=== PATIENT | female | born 1965 | race Caucasian/White ===

== ENCOUNTER 2017-02-01 21:43 | Inpatient (IN) | payer OTHER ==
[~2017-02-01] VITALS: Ht 152.4 cm; Wt 115.3 kg
[~2017-02-01 21:43] MED LIST: CLOPIDOGREL75 MG PO; COZAAR100 MG PO; Cozaar PO; DORZOLAMIDE-TIM10 ML LEFT EYE; ECOTRIN325 MG PO; Ecotrin PO; GLUCOPHAGE500 MG PO; HUMULIN 70100 UNIT/1 SC; HUMULIN 70100 UNIT/2 SC; LASIX40 MG PO; LEVAQUIN500 MG PO; LEVEMIR FL100 UNIT/1 SC; LEVEMIR FL100 UNITS/ SC; LOPRESSOR50 MG PO; LOW DOSE ASPIRI81 M1 PO; Lasix PO; Levaquin PO; Lopressor PO; METFORMIN HCL1000 MG PO; METOPROLOL SUCC25 MG PO; Micro-K,K-Tab,K-Dur, PO; NEURONTIN600 MG PO; NOVOLOG MI100 UNIT/4 SC; PAIN & FEVER325 MG PO; PERCOCET 5/31 TABLET PO; PROVENTIL HFA6.7 GM IH; Percocet 5/325,Endoc PO; TAMIFLU75 MG PO; Tylenol Regular Stre PO; VALSARTAN160 MG PO; VALTREX50 MG/ML PO; XALATAN2.5 ML BOTH EYES
[2017-02-01 22:35] LABS: HEMATOCRIT 39.9 % (36.0-46.0); MCH 32.2 PG (29.0-34.0); MCHC 34.1 G/DL (30.0-36.0); MCV 94.3 FL (83-99); MEAN PLAT.VOLUME 10.9 uM^3 (9.5-12.4); PLATELET COUNT 332 K/uL (156-360); RBC DIS.WIDTH-CV 11.9 % (11.8-14.6); RBC DIS.WIDTH-SD 41.7 % (39-53); RED BLOOD COUNT 4.23 M/uL (3.80-5.20); WHITE BLOOD COUNT 17.2 K/uL (4.1-10.2)
[2017-02-01 22:45] LABS: CHLORIDE 100 mEq/L (99-109); POTASSIUM 4.7 mEq/L (3.7-5.4); SODIUM 140 mEq/L (136-147)
[2017-02-01 22:47] LABS: GLUCOSE 382 mg/dL (70-99)
[2017-02-01 22:48] LABS: ANION GAP 13 MEQ/L (2-14)
[2017-02-01 22:49] LABS: TOTAL BILIRUBIN 0.3 mg/dL (0.0-1.0)
[2017-02-01 22:50] LABS: ALKALINE PHOSPHATASE 121 IU/L (3-129)
[2017-02-01 22:51] LABS: GFR ESTIMATE (CALCULATED) 42 mL/min/
[2017-02-01 22:52] LABS: UREA NITROGEN (BUN) 41 mg/dL (9-23)
[2017-02-01 22:59] LABS: QUANTITATIVE HCG < 4.0 MIU/ML
[2017-02-02] MEDS ORDERED: VALSARTAN160 MG PO (00:43)
[2017-02-02] MEDS ORDERED: TORSEMIDE100 MG PO (00:43)
[2017-02-02] MEDS ORDERED: ALPHAGAN P100 DROP/5 LEFT EYE (00:44)
[2017-02-02] MEDS ORDERED: METFORMIN HCL1000 M3 PO (00:44)
[2017-02-02] MEDS ORDERED: VALACYCLOVIR500 MG PO (00:44)
[2017-02-02] MEDS ORDERED: XALATAN2.5 ML LEFT EYE (00:44)
[2017-02-02 02:23] VITALS: BP 138/70
[2017-02-02 07:15] VITALS: BP 159/65
[2017-02-02 11:30] VITALS: BP 150/79
[2017-02-02 12:09] LABS: POINT-OF-CARE USER ID PUTDRM
[2017-02-02 15:20] VITALS: BP 187/77
[2017-02-02 16:49] LABS: POINT-OF-CARE USER ID PUTDRM
[2017-02-02 18:51] VITALS: BP 177/79
[2017-02-02 22:12] LABS: POINT-OF-CARE METER ID UU13113675
[2017-02-02 22:45] VITALS: BP 171/75
[2017-02-03 03:20] VITALS: BP 110/60
[2017-02-03 08:12] VITALS: BP 148/72
[2017-02-03 11:35] VITALS: BP 142/65
[2017-02-03 16:13] VITALS: BP 143/68
[2017-02-03 21:29] LABS: POINT-OF-CARE METER ID UU14208750
[2017-02-04 00:10] VITALS: BP 172/68
[2017-02-04 03:25] VITALS: BP 148/65
[2017-02-04 07:10] VITALS: BP 190/74
[2017-02-04 08:26] LABS: Estimated Average Glucose 289 mg/dL (70-123); HEMOGLOBIN A1c (GLYCOHEMOGLOB) 11.7 % HGB (Below 5.7)
[2017-02-04 15:25] LABS: POINT-OF-CARE METER ID UU14208750
[2017-02-04 17:29] VITALS: BP 151/79
[2017-02-04 21:59] LABS: POINT-OF-CARE METER ID UU14208750
[2017-02-04 23:09] VITALS: BP 143/74
[2017-02-04 23:11] VITALS: BP 151/67
[2017-02-05 01:51] LABS: VANCOMYCIN, TROUGH 12.7 MCG/ML (10-20)
[2017-02-05 06:35] LABS: HEMATOCRIT 34.5 % (36.0-46.0); MCH 32.2 PG (29.0-34.0); MCHC 33.6 G/DL (30.0-36.0); MCV 95.8 FL (83-99); MEAN PLAT.VOLUME 10.4 uM^3 (9.5-12.4); PLATELET COUNT 335 K/uL (156-360); RBC DIS.WIDTH-CV 12.2 % (11.8-14.6); RBC DIS.WIDTH-SD 42.9 % (39-53); WHITE BLOOD COUNT 14.9 K/uL (4.1-10.2)
[2017-02-05 12:39] LABS: POINT-OF-CARE METER ID UU14208750
[2017-02-05 16:12] VITALS: BP 167/76
[2017-02-05 21:43] LABS: POINT-OF-CARE METER ID UU14208750
[2017-02-05 23:08] VITALS: BP 143/64
[2017-02-06 06:38] LABS: POINT-OF-CARE METER ID UU14208750
[2017-02-06 07:40] VITALS: BP 146/66
[2017-02-06 12:03] LABS: POINT-OF-CARE USER ID PUTDRM
[2017-02-06 16:17] VITALS: BP 156/69
[2017-02-06 19:10] VITALS: BP 136/64
[2017-02-06 20:17] LABS: HEMATOCRIT 34.3 % (36.0-46.0); MCH 31.9 PG (29.0-34.0); MCHC 33.5 G/DL (30.0-36.0); MCV 95.3 FL (83-99); MEAN PLAT.VOLUME 10.4 uM^3 (9.5-12.4); PLATELET COUNT 370 K/uL (156-360); RBC DIS.WIDTH-CV 12.5 % (11.8-14.6); RBC DIS.WIDTH-SD 43.6 % (39-53); WHITE BLOOD COUNT 15.5 K/uL (4.1-10.2)
[2017-02-06 22:34] LABS: INTER. NORMALIZED RATIO 1.1; PROTHROMBIN TIME 11.1 (9.2-11.2); PTT 140.3 (25-32)
[2017-02-06 23:38] VITALS: BP 155/70
[2017-02-07 03:25] VITALS: BP 140/66
[2017-02-07 06:31] LABS: POINT-OF-CARE METER ID UU14208750
[2017-02-07 07:50] VITALS: BP 147/72
[2017-02-07 11:37] LABS: POINT-OF-CARE METER ID UU14208750
[2017-02-07 12:48] VITALS: BP 133/61
[2017-02-07 15:15] VITALS: BP 157/70
[2017-02-07 16:33] LABS: POINT-OF-CARE METER ID UU14208750
[2017-02-07 21:26] LABS: POINT-OF-CARE METER ID UU14208750
[2017-02-07 21:55] LABS: PROTHROMBIN TIME 10.1 (9.2-11.2); PTT 37.3 (25-32)
[2017-02-08] VITALS: BP 162/73
[2017-02-08 01:33] LABS: GFR ESTIMATE (CALCULATED) > 59 mL/min/
[2017-02-08 03:42] LABS: VANCOMYCIN, TROUGH 13.3 MCG/ML (10-20)
[2017-02-08 06:23] LABS: POINT-OF-CARE METER ID UU14208750
[2017-02-08 07:40] VITALS: BP 167/70
[2017-02-08 15:45] VITALS: BP 189/78
[2017-02-08 16:12] LABS: POINT-OF-CARE METER ID UU14208750
[2017-02-08 17:16] LABS: PROTHROMBIN TIME 10.1 (9.2-11.2); PTT 43.3 (25-32)
[2017-02-08 23:49] VITALS: BP 181/79
[2017-02-09 01:14] LABS: PROTHROMBIN TIME 10.3 (9.2-11.2); PTT 46.1 (25-32)
[2017-02-09 06:35] LABS: POINT-OF-CARE METER ID UU14208750
[2017-02-09 07:43] VITALS: BP 190/74
[2017-02-09 08:35] LABS: HEMATOCRIT 36.1 % (36.0-46.0); MCHC 32.1 G/DL (30.0-36.0); MCV 96.5 FL (83-99); MEAN PLAT.VOLUME 10.1 uM^3 (9.5-12.4); PLATELET COUNT 425 K/uL (156-360); RBC DIS.WIDTH-CV 12.4 % (11.8-14.6); RBC DIS.WIDTH-SD 43.9 % (39-53); RED BLOOD COUNT 3.74 M/uL (3.80-5.20); WHITE BLOOD COUNT 15.5 K/uL (4.1-10.2)
[2017-02-09 11:50] LABS: POINT-OF-CARE METER ID UU13113819
[2017-02-09 23:57] VITALS: BP 165/77
[2017-02-10 01:02] LABS: POINT-OF-CARE METER ID UU14208750
[2017-02-10 07:03] LABS: HEMATOCRIT 31.2 % (36.0-46.0); MCH 31.9 PG (29.0-34.0); MCHC 32.7 G/DL (30.0-36.0); MCV 97.5 FL (83-99); MEAN PLAT.VOLUME 10.4 uM^3 (9.5-12.4); PLATELET COUNT 382 K/uL (156-360); RBC DIS.WIDTH-CV 12.6 % (11.8-14.6); RBC DIS.WIDTH-SD 45.4 % (39-53); WHITE BLOOD COUNT 16.1 K/uL (4.1-10.2)
[2017-02-10 07:20] VITALS: BP 139/65
[2017-02-10 07:26] LABS: ALKALINE PHOSPHATASE 78 IU/L (3-129); ANION GAP 9 MEQ/L (2-14); CHLORIDE 106 MEQ/L (99-109); GFR ESTIMATE (CALCULATED) > 59 mL/min/; GLUCOSE 159 mg/dL (70-99); POTASSIUM 4.9 MEQ/L (3.7-5.4); SAMPLE HEMOLYSIS CHECK 0; SAMPLE ICTERIC CHECK 0; SAMPLE LIPEMIA CHECK 0; SODIUM 143 MEQ/L (136-147); TOTAL BILIRUBIN 0.4 MG/DL (0.0-1.0); UREA NITROGEN (BUN) 24 mg/dL (9-23)
[2017-02-10 11:13] LABS: POINT-OF-CARE METER ID UU14208750
[2017-02-10 15:50] VITALS: BP 159/70
[2017-02-10 17:09] LABS: POINT-OF-CARE METER ID UU14208750
[2017-02-10 19:49] LABS: POINT-OF-CARE METER ID UU14208750
[2017-02-10 21:44] LABS: POINT-OF-CARE METER ID UU14208750
[2017-02-11 00:02] VITALS: BP 157/73
[2017-02-11 06:13] LABS: POINT-OF-CARE METER ID UU14208750
[2017-02-11 07:17] LABS: BASOPHIL COUNT 0.1 K/uL (0-0.1); EOSINOPHIL (%) 2.8 % (0-5); EOSINOPHIL COUNT 0.4 K/uL (0-0.3); HEMATOCRIT 32.4 % (36.0-46.0); IMMATURE GRANULOCYTE (%) 1.1 % (0.0-0.7); IMMATURE GRANULOCYTE COUNT 0.2 K/uL; INSTRUMENT ABS NEUTROPHIL CT 11.5 K/uL; LYMPHOCYTE COUNT 2.7 K/uL (1.0-2.8); MCH 30.4 PG (29.0-34.0); MCHC 31.2 G/DL (30.0-36.0); MCV 97.6 FL (83-99); MEAN PLAT.VOLUME 10.2 uM^3 (9.5-12.4); MONOCYTE (%) 5.7 % (3-12); MONOCYTE COUNT 0.9 K/uL (0-0.8); NEUTROPHIL (%) 72.4 % (45-76); NEUTROPHIL COUNT 11.5 K/uL (1.8-6.4); PLATELET COUNT 397 K/uL (156-360); RBC DIS.WIDTH-CV 12.7 % (11.8-14.6); RBC DIS.WIDTH-SD 45.1 % (39-53); RED BLOOD COUNT 3.32 M/uL (3.80-5.20); WHITE BLOOD COUNT 15.9 K/uL (4.1-10.2)
[2017-02-11 07:45] LABS: ANION GAP 12 MEQ/L (2-14); CHLORIDE 104 MEQ/L (99-109); GFR ESTIMATE (CALCULATED) > 59 mL/min/; GLUCOSE 180 mg/dL (70-99); POTASSIUM 4.6 MEQ/L (3.7-5.4); SAMPLE HEMOLYSIS CHECK 0; SAMPLE ICTERIC CHECK 0; SAMPLE LIPEMIA CHECK 0; SODIUM 142 MEQ/L (136-147); UREA NITROGEN (BUN) 26 mg/dL (9-23)
[2017-02-11 08:12] VITALS: BP 156/79
[2017-02-11 12:11] LABS: POINT-OF-CARE METER ID UU14208750
[2017-02-11 15:04] VITALS: BP 145/65
[2017-02-11 20:16] LABS: POINT-OF-CARE METER ID UU13113675; POINT-OF-CARE USER ID ADMSLT55
[2017-02-11 21:09] VITALS: BP 143/79
[2017-02-11 21:36] LABS: POINT-OF-CARE METER ID UU14208750
[2017-02-12] VITALS (7 sets, daily range): BP systolic 129–168; BP diastolic 62–88
[2017-02-12 12:16] LABS: POINT-OF-CARE METER ID UU14208750
[2017-02-12 16:37] LABS: POINT-OF-CARE METER ID UU14208750
[2017-02-13 07:05] VITALS: BP 179/80
[2017-02-13 09:15] LABS: BASOPHIL COUNT 0.2 K/uL (0-0.1); EOSINOPHIL (%) 4.5 % (0-5); EOSINOPHIL COUNT 0.6 K/uL (0-0.3); HEMATOCRIT 33.7 % (36.0-46.0); IMMATURE GRANULOCYTE (%) 2.1 % (0.0-0.7); IMMATURE GRANULOCYTE COUNT 0.3 K/uL; INSTRUMENT ABS NEUTROPHIL CT 10.3 K/uL; LYMPHOCYTE COUNT 2.1 K/uL (1.0-2.8); MCH 30.7 PG (29.0-34.0); MCHC 31.2 G/DL (30.0-36.0); MCV 98.5 FL (83-99); MEAN PLAT.VOLUME 10.2 uM^3 (9.5-12.4); MONOCYTE (%) 5.5 % (3-12); MONOCYTE COUNT 0.8 K/uL (0-0.8); NEUTROPHIL COUNT 10.3 K/uL (1.8-6.4); NRBC (%) 0.1 /100 WBC (0-0); PLATELET COUNT 444 K/uL (156-360); RBC DIS.WIDTH-CV 12.8 % (11.8-14.6); RBC DIS.WIDTH-SD 45.5 % (39-53); RED BLOOD COUNT 3.42 M/uL (3.80-5.20); WHITE BLOOD COUNT 14.3 K/uL (4.1-10.2)
[2017-02-13 09:39] LABS: ANION GAP 14 MEQ/L (2-14); CHLORIDE 106 MEQ/L (99-109); GFR ESTIMATE (CALCULATED) > 59 mL/min/; GLUCOSE 136 mg/dL (70-99); SAMPLE HEMOLYSIS CHECK 0; SAMPLE ICTERIC CHECK 0; SAMPLE LIPEMIA CHECK 0; SODIUM 143 MEQ/L (136-147); UREA NITROGEN (BUN) 25 mg/dL (9-23)
[2017-02-13 11:49] LABS: POINT-OF-CARE METER ID UU14208750; POINT-OF-CARE USER ID PUTDRM
[2017-02-13 15:01] VITALS: BP 189/82
[2017-02-13] MEDS ORDERED: NovoLOG Mix 70/30 Vi SC (15:16)
[2017-02-13] MEDS ORDERED: HYDROCODON-ACE1 EAC7 PO (15:16)
[2017-02-13] MEDS ORDERED: KETOCONAZOLE60 GM TP (15:16)
[2017-02-13] MEDS ORDERED: MYCELEX10 MG MM (15:16)
[2017-02-13] MEDS ORDERED: HYDROCODON-ACE1 EAC9 PO (15:16)
[2017-02-13] MEDS ORDERED: LEVEMIR100 UNIT/2 SC (15:16)
[2017-02-13] MEDS ORDERED: ROCEPHIN1000 MG IV (15:26)
== END 2017-02-13 16:23 | disposition home or self-care (01) | DRG 256 ==
LOC: EME 21:43 → EDOF 02-02 00:45 → 2EAST 02-02 00:45
PROVIDERS: Family Medicine; Internal Medicine; Physician Assistant; Surgery
PROC: 0Y6Q0Z0 Detachment at Left 1st Toe, Complete, Open Approach (ICD-10-PCS; principal; 2017-02-02)
DX: E11.52 Type 2 diabetes mellitus with diabetic peripheral angiopathy with gangrene (principal); E11.621 Type 2 diabetes mellitus with foot ulcer; L03.116 Cellulitis of left lower limb; Z68.42 Body mass index [BMI] 45.0-49.9, adult; L97.509 Non-pressure chronic ulcer of other part of unspecified foot with unspecified severity; E11.65 Type 2 diabetes mellitus with hyperglycemia; E11.42 Type 2 diabetes mellitus with diabetic polyneuropathy; E11.319 Type 2 diabetes mellitus with unspecified diabetic retinopathy without macular edema; I10 Essential (primary) hypertension; K21.9 Gastro-esophageal reflux disease without esophagitis; L03.032 Cellulitis of left toe; I73.9 Peripheral vascular disease, unspecified; R74.0 Nonspecific elevation of levels of transaminase and lactic acid dehydrogenase [LDH]; I74.3 Embolism and thrombosis of arteries of the lower extremities; K59.00 Constipation, unspecified; E66.9 Obesity, unspecified; E78.5 Hyperlipidemia, unspecified; Z87.891 Personal history of nicotine dependence; Z79.84 Long term (current) use of oral hypoglycemic drugs; Z91.19 Patient's noncompliance with other medical treatment and regimen; Z79.82 Long term (current) use of aspirin; Z79.899 Other long term (current) drug therapy; Z87.442 Personal history of urinary calculi; E11.628 Type 2 diabetes mellitus with other skin complications; Z79.4 Long term (current) use of insulin
CPT/HCPCS: 73630; 80048; 80053; 80202; 82565; 82948; 83036; 83605; 84702; 85025; 85027; 85610; 85651; 85730; 86140; 87040; 87070; 87075; 87205; 88305; 93005; 93926; 94799; 99281; 99285; C1725; C1760; C1769; C1887; C1894; J0690; J0692; J1170; J1335; J1644; J1650; J1815; J2250; J2405; J3010; J3370; J7050; S0020

== ENCOUNTER 2017-02-25 21:50 | Inpatient (IN) | payer OTHER ==
[~2017-02-25] VITALS: Ht 152.4 cm; Wt 104.0 kg
[~2017-02-25 21:50] MED LIST changes: +ALPHAGAN P100 DROP/5 LEFT EYE; +ASPIRIN EC325 MG PO; +HYDROCODON-ACE1 EAC7 PO; +HYDROCODON-ACE1 EAC9 PO; +KETOCONAZOLE60 GM TP; +LEVEMIR100 UNIT/2 SC; -LOW DOSE ASPIRI81 M1 PO; +METFORMIN HCL1000 M3 PO; +MYCELEX10 MG MM; +NovoLOG Mix 70/30 Vi SC; +ROCEPHIN1000 MG IV; +TORSEMIDE100 MG PO; +VALACYCLOVIR500 MG PO; +XALATAN2.5 ML LEFT EYE
[2017-02-25 22:47] LABS: HEMATOCRIT 35.7 % (36.0-46.0); MCH 31.1 PG (29.0-34.0); MCHC 31.4 G/DL (30.0-36.0); MCV 99.2 FL (83-99); MEAN PLAT.VOLUME 9.6 uM^3 (9.5-12.4); PLATELET COUNT 350 K/uL (156-360); RBC DIS.WIDTH-CV 15.5 % (11.8-14.6); WHITE BLOOD COUNT 9.8 K/uL (4.1-10.2)
[2017-02-25 23:15] LABS: CHLORIDE 109 mEq/L (99-109); POTASSIUM 4.5 mEq/L (3.7-5.4); SODIUM 142 mEq/L (136-147)
[2017-02-25 23:17] LABS: GLUCOSE 156 mg/dL (70-99)
[2017-02-25 23:19] LABS: ANION GAP 9 MEQ/L (2-14)
[2017-02-25 23:21] LABS: GFR ESTIMATE (CALCULATED) > 59 mL/min/
[2017-02-25 23:22] LABS: TROP-I INTERPRETATION NEGATIVE; TROPONIN-I < 0.01 ng/mL (0.0-0.30); UREA NITROGEN (BUN) 17 mg/dL (9-23)
[2017-02-26 07:25] LABS: POINT-OF-CARE METER ID UU14100415
[2017-02-26 08:55] VITALS: BP 180/84
[2017-02-26] MEDS ORDERED: HYDROCODON-ACE1 EAC9 PO (08:57)
[2017-02-26] MEDS ORDERED: CEPHALEXIN500 MG PO (08:59)
[2017-02-26] MEDS ORDERED: NOVOLOG MI100 UNIT/2 SC (09:06)
[2017-02-26 11:23] VITALS: BP 160/60
[2017-02-26 11:35] LABS: POINT-OF-CARE METER ID UU14208750
[2017-02-26 15:26] LABS: POINT-OF-CARE METER ID UU14208750
[2017-02-26 15:56] VITALS: BP 135/61
[2017-02-26 19:28] VITALS: BP 177/77
[2017-02-26 21:34] LABS: POINT-OF-CARE METER ID UU14208750
[2017-02-26 23:25] VITALS: BP 161/73
[2017-02-27 03:48] VITALS: BP 148/70
[2017-02-27 05:55] LABS: BASOPHIL COUNT 0.1 K/uL (0-0.1); EOSINOPHIL (%) 7.3 % (0-5); EOSINOPHIL COUNT 0.6 K/uL (0-0.3); HEMATOCRIT 33.2 % (36.0-46.0); IMMATURE GRANULOCYTE (%) 0.4 % (0.0-0.7); LYMPHOCYTE COUNT 1.5 K/uL (1.0-2.8); MCHC 31.9 G/DL (30.0-36.0); MCV 100.3 FL (83-99); MEAN PLAT.VOLUME 10.1 uM^3 (9.5-12.4); MONOCYTE (%) 6.3 % (3-12); MONOCYTE COUNT 0.5 K/uL (0-0.8); NEUTROPHIL (%) 64.6 % (45-76); PLATELET COUNT 341 K/uL (156-360); RBC DIS.WIDTH-CV 15.4 % (11.8-14.6); RBC DIS.WIDTH-SD 55.8 % (39-53); RED BLOOD COUNT 3.31 M/uL (3.80-5.20); WHITE BLOOD COUNT 7.7 K/uL (4.1-10.2)
[2017-02-27 06:17] LABS: ALKALINE PHOSPHATASE 77 IU/L (3-129); ANION GAP 8 MEQ/L (2-14); CHLORIDE 104 MEQ/L (99-109); GFR ESTIMATE (CALCULATED) > 59 mL/min/; POTASSIUM 4.9 MEQ/L (3.7-5.4); SAMPLE HEMOLYSIS CHECK 0; SAMPLE ICTERIC CHECK 0; SAMPLE LIPEMIA CHECK 0; SODIUM 139 MEQ/L (136-147); TOTAL BILIRUBIN 0.6 MG/DL (0.0-1.0); UREA NITROGEN (BUN) 19 mg/dL (9-23)
[2017-02-27 06:21] LABS: GLUCOSE 264 mg/dL (70-99)
[2017-02-27 06:32] LABS: POINT-OF-CARE METER ID UU14208750
[2017-02-27 07:40] VITALS: BP 144/68
[2017-02-27 11:07] VITALS: BP 188/75
[2017-02-27 11:44] LABS: POINT-OF-CARE METER ID UU14208750; POINT-OF-CARE USER ID PUTDRM
[2017-02-27 16:00] VITALS: BP 176/77
[2017-02-27 16:14] LABS: POINT-OF-CARE USER ID PUTDRM
[2017-02-27 19:40] VITALS: BP 167/77
[2017-02-27 21:45] LABS: POINT-OF-CARE METER ID UU14208750
[2017-02-28 00:21] VITALS: BP 154/66
[2017-02-28 04:48] VITALS: BP 158/70
[2017-02-28 06:11] LABS: POINT-OF-CARE METER ID UU14208750
[2017-02-28 06:45] LABS: GFR ESTIMATE (CALCULATED) > 59 mL/min/; UREA NITROGEN (BUN) 25 mg/dL (9-23)
[2017-02-28 07:29] VITALS: BP 166/70
[2017-02-28 11:53] VITALS: BP 192/82
[2017-02-28 15:25] VITALS: BP 158/66
[2017-02-28] MEDS ORDERED: KLOR-CON M1010 MEQ PO (18:17)
[2017-02-28] MEDS ORDERED: LEVAQUIN500 MG PO (18:17)
[2017-02-28] MEDS ORDERED: VALSARTAN160 MG PO (18:17)
[2017-02-28] MEDS ORDERED: LEVEMIR100 UNIT/2 SC (18:17)
[2017-02-28] MEDS ORDERED: NOVOLOG PE100 UNITS/ SC (18:17)
== END 2017-02-28 19:24 | disposition home health service (06) | DRG 291 ==
LOC: EME 21:50 → EDOF 02-26 04:50 → 2EASTP 02-26 04:50 → ENRESERV 02-26 05:02 → CANRESERV 02-26 07:29 → ENRESERV 02-26 07:35 → 2EASTP 02-26 08:49
PROVIDERS: Internal Medicine; Nurse Practitioner Family
DX: I13.0 Hypertensive heart and chronic kidney disease with heart failure and stage 1 through stage 4 chronic kidney disease, or unspecified chronic kidney disease (principal); J18.9 Pneumonia, unspecified organism; E86.0 Dehydration; E11.52 Type 2 diabetes mellitus with diabetic peripheral angiopathy with gangrene; E11.22 Type 2 diabetes mellitus with diabetic chronic kidney disease; Z68.41 Body mass index [BMI] 40.0-44.9, adult; E11.42 Type 2 diabetes mellitus with diabetic polyneuropathy; I27.2 Other secondary pulmonary hypertension; E11.319 Type 2 diabetes mellitus with unspecified diabetic retinopathy without macular edema; E11.65 Type 2 diabetes mellitus with hyperglycemia; E66.01 Morbid (severe) obesity due to excess calories; E78.5 Hyperlipidemia, unspecified; K21.9 Gastro-esophageal reflux disease without esophagitis; Z87.442 Personal history of urinary calculi; H54.0 Blindness, both eyes; I50.9 Heart failure, unspecified; J98.11 Atelectasis; L03.119 Cellulitis of unspecified part of limb; N18.9 Chronic kidney disease, unspecified; R09.02 Hypoxemia; Z87.891 Personal history of nicotine dependence; Z89.429 Acquired absence of other toe(s), unspecified side; Z91.19 Patient's noncompliance with other medical treatment and regimen; R00.2 Palpitations; R63.0 Anorexia; R43.2 Parageusia; I08.1 Rheumatic disorders of both mitral and tricuspid valves; R94.31 Abnormal electrocardiogram [ECG] [EKG]
CPT/HCPCS: 71010; 71020; 71275; 80048; 80053; 82565; 82948; 83605; 83880; 84484; 84520; 85025; 85027; 85379; 93005; 93306; 94799; 99281; 99284; J0692; J1650; J1815; J1940; J2060; J7030; J7050

== ENCOUNTER → 2017-05-06 | Outpatient (CLI) | payer OTHER ==
[~2017-05-06] MED LIST changes: +CEPHALEXIN500 MG PO; +KLOR-CON M1010 MEQ PO; +NOVOLOG MI100 UNIT/2 SC; +NOVOLOG PE100 UNITS/ SC
== END | disposition home or self-care (01) ==
LOC: PICC 14:30
DX: B99.9 Unspecified infectious disease (principal)
CPT/HCPCS: C1894

== ENCOUNTER → 2017-06-19 | Emergency (ER) | payer OTHER ==
[~2017-06-19] VITALS: Ht 152.4 cm; Wt 104.5 kg
[2017-06-19 18:11] VITALS: BP 126/61
== END | disposition home or self-care (01) ==
LOC: EME 14:10
DX: M79.662 Pain in left lower leg (principal); M79.89 Other specified soft tissue disorders; I10 Essential (primary) hypertension; E11.9 Type 2 diabetes mellitus without complications; Z79.84 Long term (current) use of oral hypoglycemic drugs; Z95.811 Presence of heart assist device; Z79.82 Long term (current) use of aspirin; Z79.02 Long term (current) use of antithrombotics/antiplatelets; Z87.442 Personal history of urinary calculi; Z89.422 Acquired absence of other left toe(s); Z87.891 Personal history of nicotine dependence
CPT/HCPCS: 93971; 99281; 99284

== ENCOUNTER → 2017-06-24 | Outpatient (CLI) | payer OTHER | END | disposition home or self-care (01) | LOC: CDC 09:51 | DX: Z01.810 Encounter for preprocedural cardiovascular examination (principal); R94.31 Abnormal electrocardiogram [ECG] [EKG] | CPT/HCPCS: 93000 ==

== ENCOUNTER 2017-09-19 19:43 | Inpatient (IN) | payer OTHER ==
[~2017-09-19] VITALS: Ht 152.4 cm; Wt 109.0 kg
[~2017-09-19 19:43] MED LIST changes: -METFORMIN HCL1000 M3 PO; +METFORMIN HCL500 M1 PO
[2017-09-19 20:24] LABS: HEMATOCRIT 42.1 % (36.0-46.0); HEMOGLOBIN 13.8 G/DL (11.9-15.5); MCH 31.2 PG (29.0-34.0); MCHC 32.8 G/DL (30.0-36.0); PLATELET COUNT 299 K/uL (156-360); RBC DIS.WIDTH-CV 12.4 % (11.8-14.6); RBC DIS.WIDTH-SD 43.6 % (39-53); RED BLOOD COUNT 4.43 M/uL (3.80-5.20); WHITE BLOOD COUNT 10.8 K/uL (4.1-10.2)
[2017-09-19 20:37] LABS: INTER. NORMALIZED RATIO 0.9
[2017-09-19 20:39] LABS: PTT 33.1 SEC (25-37)
[2017-09-19 20:43] LABS: CHLORIDE 105 mEq/L (99-109); POTASSIUM 4.4 mEq/L (3.7-5.4); SODIUM 144 mEq/L (136-147)
[2017-09-19 20:45] LABS: GLUCOSE 161 mg/dL (70-99); TOTAL PROTEIN 7.5 g/dL (6.4-8.3)
[2017-09-19 20:47] LABS: TOTAL BILIRUBIN 0.2 mg/dL (0.0-1.0)
[2017-09-19 20:48] LABS: ALKALINE PHOSPHATASE 95 IU/L (3-129); CREATININE 1.3 mg/dL (0.6-1.3); GFR ESTIMATE (CALCULATED) 46 mL/min/
[2017-09-19 20:50] LABS: AST (GOT) 15 IU/L (2-34); UREA NITROGEN (BUN) 48 mg/dL (9-23)
[2017-09-19 20:51] LABS: ALT (GPT) 16 IU/L (3-49)
[2017-09-20] MEDS ORDERED: TORSEMIDE100 MG PO (02:30)
[2017-09-20 04:48] VITALS: BP 131/60
[2017-09-20 07:50] VITALS: BP 136/67
[2017-09-20 15:21] VITALS: BP 156/56
[2017-09-21 00:05] VITALS: BP 138/60
[2017-09-21 08:49] VITALS: BP 158/84
[2017-09-21 11:36] VITALS: BP 144/68
[2017-09-21 16:17] VITALS: BP 132/64
[2017-09-21 23:24] VITALS: BP 144/64
[2017-09-22 08:22] VITALS: BP 144/71
[2017-09-22] MEDS ORDERED: DIOVAN320 MG PO (10:27)
[2017-09-22] MEDS ORDERED: NOVOLOG MI100 UNIT/2 SC ×2 (10:28)
[2017-09-22] MEDS ORDERED: ATORVASTATIN CA10 MG PO (10:29)
[2017-09-22] MEDS ORDERED: NOVOLOG PE100 UNITS/ SC (10:29)
[2017-09-22 16:35] VITALS: BP 153/70
[2017-09-22 21:52] VITALS: BP 172/65
[2017-09-22 23:54] VITALS: BP 139/69
[2017-09-23 08:56] VITALS: BP 142/55
[2017-09-23 20:04] VITALS: BP 133/60
[2017-09-23 23:44] VITALS: BP 130/65
[2017-09-24 07:46] VITALS: BP 108/68
[2017-09-24 10:50] VITALS: BP 116/64
[2017-09-24 17:21] VITALS: BP 138/97
[2017-09-24 21:34] LABS: PTT 102.6 SEC (25-37)
[2017-09-24 23:23] VITALS: BP 142/64
[2017-09-25 07:36] VITALS: BP 108/64
[2017-09-25 11:08] VITALS: BP 132/78
[2017-09-25] MEDS ORDERED: XARELTO15 MG PO (16:14)
[2017-09-25 16:19] VITALS: BP 136/74
[2017-09-26 03:23] VITALS: BP 180/76
[2017-09-26 08:00] VITALS: BP 126/77; BP 174/77
[2017-09-26 12:24] VITALS: BP 168/76
== END 2017-09-26 13:30 | disposition home health service (06) | DRG 253 ==
LOC: EME 19:43 → 5SOUTH 09-20 02:33 → EDOF 09-20 02:33 → ENRESERV 09-20 02:35 → 5SOUTH 09-20 04:34 → ENPENDDIS 09-26 13:10 → 5SOUTH 09-26 13:30
PROVIDERS: Emergency Medicine; Surgery; Thoracic Surgery (Cardiothoracic Vascular Surgery)
PROC: 047L3ZZ Dilation of Left Femoral Artery, Percutaneous Approach (ICD-10-PCS; principal; 2017-09-23)
DX: I82.442 Acute embolism and thrombosis of left tibial vein (principal); E11.51 Type 2 diabetes mellitus with diabetic peripheral angiopathy without gangrene; I70.249 Atherosclerosis of native arteries of left leg with ulceration of unspecified site; L03.116 Cellulitis of left lower limb; L97.929 Non-pressure chronic ulcer of unspecified part of left lower leg with unspecified severity; T81.89XA Other complications of procedures, not elsewhere classified, initial encounter; Y83.6 Removal of other organ (partial) (total) as the cause of abnormal reaction of the patient, or of later complication, without mention of misadventure at the time of the procedure; E11.42 Type 2 diabetes mellitus with diabetic polyneuropathy; E11.319 Type 2 diabetes mellitus with unspecified diabetic retinopathy without macular edema; I10 Essential (primary) hypertension; K21.9 Gastro-esophageal reflux disease without esophagitis; E78.5 Hyperlipidemia, unspecified; Z89.412 Acquired absence of left great toe; Z87.891 Personal history of nicotine dependence; Z87.442 Personal history of urinary calculi; Z79.82 Long term (current) use of aspirin; Z79.02 Long term (current) use of antithrombotics/antiplatelets; Z79.4 Long term (current) use of insulin
CPT/HCPCS: 73630; 75635; 80053; 82948; 83605; 85027; 85610; 85730; 86140; 87040; 93926; 93971; 99281; 99284; C1725; C1760; C1769; C1887; C1894; J1644; J1815; J2250; J2270; J3010

== ENCOUNTER 2017-10-03 19:47 | Emergency (ER) | payer OTHER ==
[~2017-10-03] VITALS: Ht 152.4 cm; Wt 109.0 kg
[~2017-10-03 19:47] MED LIST changes: +ATORVASTATIN CA10 MG PO; +DIOVAN320 MG PO; +XARELTO15 MG PO
[2017-10-03 22:11] VITALS: BP 131/44
== END 2017-10-03 22:12 | disposition home or self-care (01) ==
LOC: EME 19:47
DX: K59.00 Constipation, unspecified (principal); I11.0 Hypertensive heart disease with heart failure; I50.9 Heart failure, unspecified; E11.9 Type 2 diabetes mellitus without complications; E78.5 Hyperlipidemia, unspecified; K21.9 Gastro-esophageal reflux disease without esophagitis; Z87.442 Personal history of urinary calculi; Z95.0 Presence of cardiac pacemaker; Z87.891 Personal history of nicotine dependence; Z79.4 Long term (current) use of insulin; Z79.82 Long term (current) use of aspirin; Z88.0 Allergy status to penicillin
CPT/HCPCS: 74018; 99281; 99284

== ENCOUNTER → 2018-01-18 | Outpatient (CLI) | payer OTHER | END | disposition home or self-care (01) | LOC: CDC 14:57 | DX: Z01.810 Encounter for preprocedural cardiovascular examination (principal); I70.25 Atherosclerosis of native arteries of other extremities with ulceration; R94.31 Abnormal electrocardiogram [ECG] [EKG] | CPT/HCPCS: 93000 ==

== ENCOUNTER 2018-01-29 16:52 | Emergency (ER) | payer OTHER ==
[~2018-01-29] VITALS: Ht 152.4 cm; Wt 109.0 kg
[2018-01-29 17:31] LABS: HEMATOCRIT 33.5 % (36.0-46.0); HEMOGLOBIN 10.9 G/DL (11.9-15.5); MCH 29.2 PG (29.0-34.0); MCHC 32.5 G/DL (30.0-36.0); MCV 89.8 FL (83-99); PLATELET COUNT 300 K/uL (156-360); RBC DIS.WIDTH-SD 49.5 % (39-53); RED BLOOD COUNT 3.73 M/uL (3.80-5.20); WHITE BLOOD COUNT 7.7 K/uL (4.1-10.2)
[2018-01-29 17:41] LABS: CHLORIDE 105 mEq/L (99-109); POTASSIUM 4.2 mEq/L (3.7-5.4); SODIUM 140 mEq/L (136-147)
[2018-01-29 17:43] LABS: GLUCOSE 98 mg/dL (70-99)
[2018-01-29 17:47] LABS: CREATININE 1.6 mg/dL (0.6-1.3); GFR ESTIMATE (CALCULATED) 36 mL/min/
[2018-01-29 17:48] LABS: UREA NITROGEN (BUN) 47 mg/dL (9-23)
[2018-01-29 17:58] LABS: QUANTITATIVE HCG < 4.0 MIU/ML
[2018-01-29 18:59] LABS: APPEARANCE CLEAR ((CLEAR)); BILIRUBIN NEGATIVE; BLOOD NEGATIVE; COLOR YELLOW ((YELLOW)); GLUCOSE (STRIP) NEGATIVE; KETONES NEGATIVE; LEUKOCYTES NEGATIVE; NITRITE NEGATIVE; PROTEIN (STRIP) 30; SPECIFIC GRAVITY 1.011 (1.000-1.030); UCUL ADDED? NO; UROBILINOGEN 0.2 MG/DL (0.2-1.0)
[2018-01-29 19:48] LABS: THYROTROPIN (TSH) 1.4 MIU/L (0.4-5.5)
[2018-01-29 22:21] LABS: ALBUMIN 3.7 G/DL (3.2-4.8); ALKALINE PHOSPHATASE 53 IU/L (3-129); ALT (GPT) 24 IU/L (3-49); AST (GOT) 33 IU/L (2-34); TOTAL BILIRUBIN 0.5 MG/DL (0.0-1.0); TOTAL PROTEIN 6.9 G/DL (6.4-8.3)
[2018-01-29 22:32] VITALS: BP 140/64
[2018-01-29 22:59] LABS: ERTH.SED.RATE 89 MM/HR (0-30)
[2018-01-30 13:32] LABS: ANISOCYTOSIS 1+
[2018-01-30 13:47] LABS: BAND NEUTROPHILS 21.2 % (0-8.0); BASOPHILS 0.9 %; EOSINOPHIL ABS CT 0.3; EOSINOPHILS 3.5 % (0-5.0); MONOCYTES 7.1 % (0-9.0); SEG.NEUTROPHILS 44.3 % (46.0-76.0)
[2018-01-31 11:50] LABS: LYME DISEASE SEROLOGY SCREEN NEGATIVE (NEGATIVE)
== END 2018-01-29 22:49 | disposition home or self-care (01) ==
LOC: EME 16:52
PROVIDERS: Physician Assistant Medical
DX: R53.1 Weakness (principal); R11.0 Nausea; R50.9 Fever, unspecified; Z91.81 History of falling; R94.31 Abnormal electrocardiogram [ECG] [EKG]; I11.0 Hypertensive heart disease with heart failure; I50.9 Heart failure, unspecified; E78.5 Hyperlipidemia, unspecified; E11.9 Type 2 diabetes mellitus without complications; Z79.4 Long term (current) use of insulin; Z79.02 Long term (current) use of antithrombotics/antiplatelets; Z79.82 Long term (current) use of aspirin; Z87.442 Personal history of urinary calculi; Z87.440 Personal history of urinary (tract) infections; Z88.0 Allergy status to penicillin; Z87.891 Personal history of nicotine dependence
CPT/HCPCS: 71046; 80048; 80076; 81003; 82948; 84443; 84702; 85007; 85025; 85027; 85060; 85651; 86038; 86618; 93005; 99281; 99284; J7030

== ENCOUNTER 2018-02-03 14:49 | Inpatient (IN) | payer OTHER ==
[~2018-02-03] VITALS: Ht 152.4 cm; Wt 145.0 kg
[2018-02-03 19:12] LABS: HEMOGLOBIN 10.7 G/DL (11.9-15.5); MCH 28.6 PG (29.0-34.0); MCHC 32.4 G/DL (30.0-36.0); MCV 88.2 FL (83-99); PLATELET COUNT 345 K/uL (156-360); RBC DIS.WIDTH-CV 15.7 % (11.8-14.6); RBC DIS.WIDTH-SD 50.3 % (39-53); RED BLOOD COUNT 3.74 M/uL (3.80-5.20); WHITE BLOOD COUNT 13.3 K/uL (4.1-10.2)
[2018-02-03 19:29] LABS: ALBUMIN 3.7 g/dL (3.2-4.8); CHLORIDE 104 mEq/L (99-109); POTASSIUM 3.8 mEq/L (3.7-5.4); SODIUM 139 mEq/L (136-147)
[2018-02-03 19:31] LABS: GLUCOSE 58 mg/dL (70-99)
[2018-02-03 19:32] LABS: TOTAL PROTEIN 7.3 g/dL (6.4-8.3)
[2018-02-03 19:33] LABS: TOTAL BILIRUBIN 0.5 mg/dL (0.0-1.0)
[2018-02-03 19:35] LABS: ALKALINE PHOSPHATASE 72 IU/L (3-129); CREATININE 1.4 mg/dL (0.6-1.3); GFR ESTIMATE (CALCULATED) 42 mL/min/
[2018-02-03 19:36] LABS: UREA NITROGEN (BUN) 39 mg/dL (9-23)
[2018-02-03 19:37] LABS: AST (GOT) 47 IU/L (2-34)
[2018-02-03 19:38] LABS: ALT (GPT) 33 IU/L (3-49)
[2018-02-03 19:40] LABS: TROP-I INTERPRETATION NEGATIVE; TROPONIN-I 0.04 ng/mL (0.0-0.30)
[2018-02-03 20:11] LABS: ABS NEUTROPHIL COUNT 8.1; ANISOCYTOSIS 1+; ATYPICAL LYMPHOCYTE 4.5 %; BAND NEUTROPHILS 24.1 % (0-8.0); BASOPHILS 0.9 %; EOSINOPHIL ABS CT 0.7; EOSINOPHILS 5.3 % (0-5.0); METAMYELOCYTES 0.9 %; MICROCYTOSIS 1+; MONOCYTES 2.7 % (0-9.0); NUCLEATED RBC'S 0.9; PLAT.SUFFICIENCY ADEQUATE; SEG.NEUTROPHILS 36.6 % (46.0-76.0)
[2018-02-03 21:00] LABS: APPEARANCE CLEAR ((CLEAR)); BILIRUBIN NEGATIVE; BLOOD SMALL; COLOR YELLOW ((YELLOW)); GLUCOSE (STRIP) NEGATIVE; KETONES NEGATIVE; LEUKOCYTES NEGATIVE; NITRITE POSITIVE; PROTEIN (STRIP) 30; SPECIFIC GRAVITY 1.011 (1.000-1.030); UROBILINOGEN 0.2 MG/DL (0.2-1.0)
[2018-02-03 21:08] LABS: BACTERIA 3+ /HPF; EPITHELIAL CELLS 1+ /HPF; MUCUS TRACE /LPF; RED BLOOD CELLS 0-5 /HPF (0-5); UCUL ADDED? YES; WHITE BLOOD CELLS 0-5 /HPF (0-5)
[2018-02-03] MEDS ORDERED: KEFLEX500 MG PO (21:10)
[2018-02-04 17:07] VITALS: BP 142/65
[2018-02-04 20:46] VITALS: BP 146/70
[2018-02-04] MEDS ORDERED: KEFLEX500 MG PO (21:10)
[2018-02-04 23:23] VITALS: BP 148/65
[2018-02-05 04:23] VITALS: BP 136/62
[2018-02-05 07:26] LABS: HEMATOCRIT 32.6 % (36.0-46.0); HEMOGLOBIN 10.5 G/DL (11.9-15.5); MCH 28.8 PG (29.0-34.0); MCHC 32.2 G/DL (30.0-36.0); MCV 89.3 FL (83-99); NRBC (%) 0.2 /100 WBC (0-0); PLATELET COUNT 358 K/uL (156-360); RBC DIS.WIDTH-CV 15.9 % (11.8-14.6); RBC DIS.WIDTH-SD 51.3 % (39-53); RED BLOOD COUNT 3.65 M/uL (3.80-5.20)
[2018-02-05 07:55] LABS: CHLORIDE 104 MEQ/L (99-109); CREATININE 1.5 MG/DL (0.6-1.3); GFR ESTIMATE (CALCULATED) 39 mL/min/; GLUCOSE 171 mg/dL (70-99); POTASSIUM 4.9 MEQ/L (3.7-5.4); SODIUM 139 MEQ/L (136-147); UREA NITROGEN (BUN) 42 mg/dL (9-23)
[2018-02-05 07:56] LABS: ABS NEUTROPHIL COUNT 8.1; ANISOCYTOSIS 1+; ATYPICAL LYMPHOCYTE 9.9 %; EOSINOPHIL ABS CT 0.5; EOSINOPHILS 3.6 % (0-5.0); LYMPHOCYTES 21.6 % (15.0-45.0); MICROCYTOSIS 1+; MONOCYTES 2.7 % (0-9.0); SMUDGE CELLS 57.7
[2018-02-05 07:59] LABS: BAND NEUTROPHILS 2.7 % (0-8.0); SEG.NEUTROPHILS 59.5 % (46.0-76.0)
[2018-02-05 09:14] VITALS: BP 140/80
[2018-02-05 11:46] VITALS: BP 130/60
[2018-02-05 15:34] VITALS: BP 140/80
[2018-02-05 19:59] VITALS: BP 150/67
[2018-02-05 21:56] VITALS: BP 135/56
[2018-02-06 07:08] LABS: HEMATOCRIT 32.8 % (36.0-46.0); HEMOGLOBIN 10.2 G/DL (11.9-15.5); MCH 27.9 PG (29.0-34.0); MCHC 31.1 G/DL (30.0-36.0); MCV 89.9 FL (83-99); PLATELET COUNT 366 K/uL (156-360); RBC DIS.WIDTH-CV 16.1 % (11.8-14.6); RBC DIS.WIDTH-SD 52.7 % (39-53); RED BLOOD COUNT 3.65 M/uL (3.80-5.20); WHITE BLOOD COUNT 14.4 K/uL (4.1-10.2)
[2018-02-06 07:36] LABS: CHLORIDE 106 MEQ/L (99-109); CREATININE 1.3 MG/DL (0.6-1.3); GFR ESTIMATE (CALCULATED) 46 mL/min/; GLUCOSE 183 mg/dL (70-99); POTASSIUM 4.8 MEQ/L (3.7-5.4); SODIUM 142 MEQ/L (136-147); UREA NITROGEN (BUN) 35 mg/dL (9-23)
[2018-02-06 07:37] VITALS: BP 154/68
[2018-02-06 11:35] VITALS: BP 131/64
[2018-02-06 16:11] VITALS: BP 124/75
[2018-02-06 21:18] VITALS: BP 117/54
[2018-02-06 23:43] VITALS: BP 154/67
[2018-02-07 08:42] LABS: HEMATOCRIT 29.7 % (36.0-46.0); HEMOGLOBIN 9.5 G/DL (11.9-15.5); MCH 29.2 PG (29.0-34.0); MCV 91.4 FL (83-99); PLATELET COUNT 333 K/uL (156-360); RBC DIS.WIDTH-CV 16.5 % (11.8-14.6); RBC DIS.WIDTH-SD 55.3 % (39-53); RED BLOOD COUNT 3.25 M/uL (3.80-5.20); WHITE BLOOD COUNT 18.1 K/uL (4.1-10.2)
[2018-02-07 08:57] LABS: CHLORIDE 110 mEq/L (99-109); POTASSIUM 4.4 mEq/L (3.7-5.4); SODIUM 142 mEq/L (136-147)
[2018-02-07 08:59] LABS: GLUCOSE 127 mg/dL (70-99)
[2018-02-07 09:02] LABS: CREATININE 1.1 mg/dL (0.6-1.3); GFR ESTIMATE (CALCULATED) 55 mL/min/
[2018-02-07 09:03] LABS: UREA NITROGEN (BUN) 28 mg/dL (9-23)
[2018-02-07 09:34] VITALS: BP 122/62
[2018-02-07 16:31] VITALS: BP 124/76
[2018-02-07 18:35] VITALS: BP 174/71
[2018-02-08] VITALS: BP 169/70
[2018-02-08 06:59] LABS: VANCOMYCIN, TROUGH 16.7 MCG/ML (10-20)
[2018-02-08 08:19] VITALS: BP 120/60; BP 120/600
[2018-02-08 10:23] LABS: HEMATOCRIT 31.1 % (36.0-46.0); HEMOGLOBIN 9.6 G/DL (11.9-15.5); MCH 28.3 PG (29.0-34.0); MCHC 30.9 G/DL (30.0-36.0); MCV 91.7 FL (83-99); PLATELET COUNT 339 K/uL (156-360); RBC DIS.WIDTH-CV 16.2 % (11.8-14.6); RBC DIS.WIDTH-SD 54.3 % (39-53); RED BLOOD COUNT 3.39 M/uL (3.80-5.20); WHITE BLOOD COUNT 22.1 K/uL (4.1-10.2)
[2018-02-08 10:37] LABS: CHLORIDE 108 MEQ/L (99-109); CREATININE 1.1 MG/DL (0.6-1.3); GFR ESTIMATE (CALCULATED) 55 mL/min/; POTASSIUM 4.3 MEQ/L (3.7-5.4); SODIUM 145 MEQ/L (136-147); UREA NITROGEN (BUN) 27 mg/dL (9-23)
[2018-02-08 10:43] LABS: GLUCOSE 248 mg/dL (70-99)
[2018-02-08 13:44] LABS: C DIFF TOXIN NEGATIVE (NEGATIVE)
[2018-02-08 16:34] VITALS: BP 148/68
[2018-02-08 23:08] VITALS: BP 144/66
[2018-02-09 05:58] LABS: HEMATOCRIT 29.8 % (36.0-46.0); HEMOGLOBIN 9.5 G/DL (11.9-15.5); MCH 28.7 PG (29.0-34.0); MCHC 31.9 G/DL (30.0-36.0); PLATELET COUNT 347 K/uL (156-360); RBC DIS.WIDTH-CV 16.4 % (11.8-14.6); RBC DIS.WIDTH-SD 53.6 % (39-53); RED BLOOD COUNT 3.31 M/uL (3.80-5.20); WHITE BLOOD COUNT 23.1 K/uL (4.1-10.2)
[2018-02-09 06:19] LABS: CHLORIDE 108 MEQ/L (99-109); CREATININE 1.4 MG/DL (0.6-1.3); GFR ESTIMATE (CALCULATED) 42 mL/min/; GLUCOSE 210 mg/dL (70-99); POTASSIUM 4.2 MEQ/L (3.7-5.4); SODIUM 146 MEQ/L (136-147); UREA NITROGEN (BUN) 36 mg/dL (9-23)
[2018-02-09 07:45] VITALS: BP 130/60
[2018-02-09 12:35] LABS: CARBOXY HGB 1.8 % (0-5); COMMENTS - BLOOD GASES A+C+; DEVICE NC; METHEMOGLOBIN 0.7 % (0-1.5); O2 FLOW 2 L/MIN; PCO2 46 mm Hg (35-45); PO2 109 mm Hg (80-100); SITE LR; pH 7.39 (7.35-7.45)
[2018-02-09 12:36] LABS: BASE EXCESS 2.4 mEq/L (-3 to +3); BICARBONATE 27.8 mEq/L (22-26)
[2018-02-09 16:04] VITALS: BP 120/60
[2018-02-09 20:00] VITALS: BP 138/62
[2018-02-10 00:20] LABS: HEMATOCRIT 27.8 % (36.0-46.0); HEMOGLOBIN 8.9 G/DL (11.9-15.5); MCV 90.6 FL (83-99); PLATELET COUNT 328 K/uL (156-360); RBC DIS.WIDTH-CV 16.4 % (11.8-14.6); RBC DIS.WIDTH-SD 54.5 % (39-53); RED BLOOD COUNT 3.07 M/uL (3.80-5.20); WHITE BLOOD COUNT 16.3 K/uL (4.1-10.2)
[2018-02-10 00:29] LABS: CHLORIDE 112 mEq/L (99-109); POTASSIUM 4.3 mEq/L (3.7-5.4); SODIUM 148 mEq/L (136-147)
[2018-02-10 00:30] LABS: GLUCOSE 164 mg/dL (70-99)
[2018-02-10 00:34] LABS: CREATININE 1.5 mg/dL (0.6-1.3); GFR ESTIMATE (CALCULATED) 39 mL/min/
[2018-02-10 00:35] LABS: UREA NITROGEN (BUN) 42 mg/dL (9-23)
[2018-02-10 01:01] VITALS: BP 137/58
[2018-02-10 01:16] LABS: BICARBONATE 28.9 mEq/L (22-26); CARBOXY HGB 1.7 % (0-5); PCO2 50 mm Hg (35-45); PO2 139 mm Hg (80-100); pH 7.37 (7.35-7.45)
[2018-02-10 01:17] LABS: COMMENTS - BLOOD GASES C+A+; DEVICE VENTILATOR; FI02 40 %; MODE SPONT; PEEP 5 CM/H20; PRES. SUPPORT 12 CM/H2O; SITE RR; TOTAL RESP RATE 15 resp/min
[2018-02-10 05:55] LABS: BASOPHIL (%) 0.5 % (0-1); BASOPHIL COUNT 0.1 K/uL (0-0.1); EOSINOPHIL (%) 1.1 % (0-5); EOSINOPHIL COUNT 0.2 K/uL (0-0.3); HEMOGLOBIN 8.8 G/DL (11.9-15.5); IMMATURE GRANULOCYTE (%) 0.5 % (0.0-0.7); LYMPHOCYTE (%) 19.5 % (15-42); LYMPHOCYTE COUNT 2.9 K/uL (1.0-2.8); MCH 28.2 PG (29.0-34.0); MCHC 30.3 G/DL (30.0-36.0); MCV 92.9 FL (83-99); MONOCYTE COUNT 0.9 K/uL (0-0.8); NEUTROPHIL (%) 72.4 % (45-76); NEUTROPHIL COUNT 10.7 K/uL (1.8-6.4); RBC DIS.WIDTH-CV 16.7 % (11.8-14.6); RBC DIS.WIDTH-SD 56.1 % (39-53); RED BLOOD COUNT 3.12 M/uL (3.80-5.20); WHITE BLOOD COUNT 14.7 K/uL (4.1-10.2)
[2018-02-10 06:07] LABS: CHLORIDE 107 MEQ/L (99-109); CREATININE 1.5 MG/DL (0.6-1.3); GFR ESTIMATE (CALCULATED) 39 mL/min/; GLUCOSE 178 mg/dL (70-99); POTASSIUM 4.1 MEQ/L (3.7-5.4); SODIUM 145 MEQ/L (136-147); UREA NITROGEN (BUN) 41 mg/dL (9-23)
[2018-02-10 06:19] VITALS: BP 156/71
[2018-02-10 06:43] LABS: PLAT.SUFFICIENCY DECREASED; PLATELET COUNT 316 K/uL (156-360)
[2018-02-10 07:01] VITALS: BP 135/90
[2018-02-10 08:01] VITALS: BP 136/72
[2018-02-10 09:01] VITALS: BP 138/81
[2018-02-10 20:00] VITALS: BP 138/81
[2018-02-11] VITALS (7 sets, daily range): BP systolic 123–181; BP diastolic 56–99
[2018-02-11 09:40] LABS: BASOPHIL (%) 0.9 % (0-1); BASOPHIL COUNT 0.1 K/uL (0-0.1); EOSINOPHIL (%) 3.4 % (0-5); EOSINOPHIL COUNT 0.3 K/uL (0-0.3); HEMATOCRIT 29.3 % (36.0-46.0); HEMOGLOBIN 8.6 G/DL (11.9-15.5); IMMATURE GRANULOCYTE (%) 0.4 % (0.0-0.7); LYMPHOCYTE (%) 24.6 % (15-42); LYMPHOCYTE COUNT 2.4 K/uL (1.0-2.8); MCH 27.8 PG (29.0-34.0); MCHC 29.4 G/DL (30.0-36.0); MCV 94.8 FL (83-99); MONOCYTE (%) 5.9 % (3-12); MONOCYTE COUNT 0.6 K/uL (0-0.8); NEUTROPHIL (%) 64.8 % (45-76); NEUTROPHIL COUNT 6.3 K/uL (1.8-6.4); PLATELET COUNT 346 K/uL (156-360); RBC DIS.WIDTH-CV 16.6 % (11.8-14.6); RBC DIS.WIDTH-SD 57.4 % (39-53); RED BLOOD COUNT 3.09 M/uL (3.80-5.20); WHITE BLOOD COUNT 9.7 K/uL (4.1-10.2)
[2018-02-11 10:05] LABS: INTER. NORMALIZED RATIO 1.2
[2018-02-11 10:08] LABS: PTT 29.6 SEC (25-37)
[2018-02-11 10:31] LABS: CHLORIDE 110 MEQ/L (99-109); CREATININE 1.2 MG/DL (0.6-1.3); GFR ESTIMATE (CALCULATED) 50 mL/min/; MAGNESIUM 2.5 mg/dl (1.3-2.7); PHOSPHORUS 3.3 mg/dL (2.5-4.9); SODIUM 148 MEQ/L (136-147); UREA NITROGEN (BUN) 36 mg/dL (9-23)
[2018-02-11 10:43] LABS: GLUCOSE 268 mg/dL (70-99)
[2018-02-11 11:12] LABS: VANCOMYCIN, TROUGH 14.5 MCG/ML (10-20)
[2018-02-12 03:07] VITALS: BP 150/74
[2018-02-12 07:14] VITALS: BP 121/81
[2018-02-12 11:53] VITALS: BP 143/65
[2018-02-12 16:40] VITALS: BP 136/61
[2018-02-12 19:20] VITALS: BP 140/50
[2018-02-12 23:20] VITALS: BP 140/80
[2018-02-13 04:45] VITALS: BP 151/67
[2018-02-13 07:06] VITALS: BP 165/83
[2018-02-13 12:06] VITALS: BP 157/67
[2018-02-13 15:18] VITALS: BP 168/63
[2018-02-13 16:42] LABS: ALBUMIN 2.3 G/DL (3.2-4.8); ALKALINE PHOSPHATASE 70 IU/L (3-129); ALT (GPT) 15 IU/L (3-49); AST (GOT) 17 IU/L (2-34); CHLORIDE 116 MEQ/L (99-109); CREATININE 0.9 MG/DL (0.6-1.3); GFR ESTIMATE (CALCULATED) > 59 mL/min/; GLUCOSE 190 mg/dL (70-99); SODIUM 153 MEQ/L (136-147); TOTAL BILIRUBIN 0.4 MG/DL (0.0-1.0); UREA NITROGEN (BUN) 20 mg/dL (9-23)
[2018-02-13 20:05] VITALS: BP 137/65
[2018-02-13 23:23] VITALS: BP 156/58
[2018-02-14 05:15] LABS: HEMATOCRIT 29.5 % (36.0-46.0); MCH 27.9 PG (29.0-34.0); MCHC 30.5 G/DL (30.0-36.0); MCV 91.3 FL (83-99); PLATELET COUNT 374 K/uL (156-360); RBC DIS.WIDTH-CV 16.1 % (11.8-14.6); RED BLOOD COUNT 3.23 M/uL (3.80-5.20); WHITE BLOOD COUNT 9.6 K/uL (4.1-10.2)
[2018-02-14 06:07] LABS: CHLORIDE 113 MEQ/L (99-109); CREATININE 0.9 MG/DL (0.6-1.3); GFR ESTIMATE (CALCULATED) > 59 mL/min/; GLUCOSE 257 mg/dL (70-99); MAGNESIUM 2.4 mg/dl (1.3-2.7); POTASSIUM 4.3 MEQ/L (3.7-5.4); SODIUM 152 MEQ/L (136-147); UREA NITROGEN (BUN) 18 mg/dL (9-23)
[2018-02-14 09:18] VITALS: BP 184/78
[2018-02-14 11:09] VITALS: BP 173/70
[2018-02-14 20:55] VITALS: BP 152/55
[2018-02-14 23:55] VITALS: BP 158/70
[2018-02-15 05:40] LABS: HEMATOCRIT 29.2 % (36.0-46.0); HEMOGLOBIN 8.7 G/DL (11.9-15.5); MCH 27.4 PG (29.0-34.0); MCHC 29.8 G/DL (30.0-36.0); MCV 91.8 FL (83-99); PLATELET COUNT 365 K/uL (156-360); RBC DIS.WIDTH-CV 16.1 % (11.8-14.6); RBC DIS.WIDTH-SD 53.2 % (39-53); RED BLOOD COUNT 3.18 M/uL (3.80-5.20)
[2018-02-15 05:43] VITALS: BP 150/62
[2018-02-15 06:02] LABS: CHLORIDE 110 MEQ/L (99-109); CREATININE 0.9 MG/DL (0.6-1.3); GFR ESTIMATE (CALCULATED) > 59 mL/min/; GLUCOSE 225 mg/dL (70-99); MAGNESIUM 2.3 mg/dl (1.3-2.7); POTASSIUM 4.3 MEQ/L (3.7-5.4); SODIUM 147 MEQ/L (136-147); UREA NITROGEN (BUN) 13 mg/dL (9-23)
[2018-02-15 07:04] VITALS: BP 141/72
[2018-02-15 13:36] VITALS: BP 148/71
[2018-02-15 17:38] VITALS: BP 151/72
[2018-02-15 21:00] VITALS: BP 144/67
[2018-02-16] VITALS (8 sets, daily range): BP systolic 130–188; BP diastolic 60–87
[2018-02-16 06:03] LABS: HEMATOCRIT 29.8 % (36.0-46.0); HEMOGLOBIN 9.3 G/DL (11.9-15.5); MCH 27.9 PG (29.0-34.0); MCHC 31.2 G/DL (30.0-36.0); MCV 89.5 FL (83-99); PLATELET COUNT 369 K/uL (156-360); RBC DIS.WIDTH-CV 15.9 % (11.8-14.6); RBC DIS.WIDTH-SD 50.9 % (39-53); RED BLOOD COUNT 3.33 M/uL (3.80-5.20); WHITE BLOOD COUNT 11.7 K/uL (4.1-10.2)
[2018-02-16 06:29] LABS: CHLORIDE 106 MEQ/L (99-109); CREATININE 0.9 MG/DL (0.6-1.3); GFR ESTIMATE (CALCULATED) > 59 mL/min/; GLUCOSE 227 mg/dL (70-99); MAGNESIUM 2.2 mg/dl (1.3-2.7); POTASSIUM 4.6 MEQ/L (3.7-5.4); SODIUM 142 MEQ/L (136-147); UREA NITROGEN (BUN) 11 mg/dL (9-23)
[2018-02-17 03:15] VITALS: BP 151/63
[2018-02-17 07:39] VITALS: BP 191/74
[2018-02-17 09:51] LABS: HEMATOCRIT 32.8 % (36.0-46.0); HEMOGLOBIN 10.3 G/DL (11.9-15.5); MCH 27.9 PG (29.0-34.0); MCHC 31.4 G/DL (30.0-36.0); MCV 88.9 FL (83-99); PLATELET COUNT 333 K/uL (156-360); RBC DIS.WIDTH-CV 16.4 % (11.8-14.6); RBC DIS.WIDTH-SD 51.8 % (39-53); RED BLOOD COUNT 3.69 M/uL (3.80-5.20); WHITE BLOOD COUNT 16.1 K/uL (4.1-10.2)
[2018-02-17 10:17] LABS: CHLORIDE 107 MEQ/L (99-109); CREATININE 0.9 MG/DL (0.6-1.3); GFR ESTIMATE (CALCULATED) > 59 mL/min/; GLUCOSE 291 mg/dL (70-99); POTASSIUM 4.5 MEQ/L (3.7-5.4); SODIUM 141 MEQ/L (136-147); UREA NITROGEN (BUN) 13 mg/dL (9-23)
[2018-02-17 11:00] VITALS: BP 169/73
[2018-02-17 11:25] LABS: ALBUMIN 2.4 G/DL (3.2-4.8); ALT (GPT) 19 IU/L (3-49); DIRECT BILIRUBIN 0.2 mg/dL (0.0-0.3); TOTAL PROTEIN 5.1 G/DL (6.4-8.3)
[2018-02-17 11:26] LABS: ALKALINE PHOSPHATASE 103 IU/L (3-129); AST (GOT) 30 IU/L (2-34); TOTAL BILIRUBIN 0.6 MG/DL (0.0-1.0)
[2018-02-17 16:00] VITALS: BP 170/74
[2018-02-17 19:00] VITALS: BP 185/77
[2018-02-17 23:00] VITALS: BP 158/70
[2018-02-18 03:30] VITALS: BP 151/66
[2018-02-18 07:30] VITALS: BP 169/72
[2018-02-18 17:15] VITALS: BP 193/85
[2018-02-18 19:30] VITALS: BP 125/60
[2018-02-18 23:00] VITALS: BP 131/57
[2018-02-19 03:00] VITALS: BP 140/62
[2018-02-19 05:50] LABS: HEMATOCRIT 28.8 % (36.0-46.0); HEMOGLOBIN 8.9 G/DL (11.9-15.5); MCH 27.7 PG (29.0-34.0); MCHC 30.9 G/DL (30.0-36.0); MCV 89.7 FL (83-99); PLATELET COUNT 343 K/uL (156-360); RBC DIS.WIDTH-CV 16.9 % (11.8-14.6); RBC DIS.WIDTH-SD 54.3 % (39-53); RED BLOOD COUNT 3.21 M/uL (3.80-5.20); WHITE BLOOD COUNT 14.5 K/uL (4.1-10.2)
[2018-02-19 06:15] LABS: ALBUMIN 2.1 G/DL (3.2-4.8); ALKALINE PHOSPHATASE 109 IU/L (3-129); ALT (GPT) 12 IU/L (3-49); AST (GOT) 23 IU/L (2-34); CHLORIDE 106 MEQ/L (99-109); DIRECT BILIRUBIN 0.2 mg/dL (0.0-0.3); GFR ESTIMATE (CALCULATED) > 59 mL/min/; GLUCOSE 209 mg/dL (70-99); POTASSIUM 4.6 MEQ/L (3.7-5.4); SODIUM 140 MEQ/L (136-147); TOTAL BILIRUBIN 0.5 MG/DL (0.0-1.0); TOTAL PROTEIN 4.7 G/DL (6.4-8.3); UREA NITROGEN (BUN) 17 mg/dL (9-23)
[2018-02-19 08:45] VITALS: BP 148/67
[2018-02-19 12:40] VITALS: BP 143/63
[2018-02-19 15:52] VITALS: BP 150/63
[2018-02-19 20:12] VITALS: BP 120/56
[2018-02-19 23:04] VITALS: BP 131/74
[2018-02-20 04:03] VITALS: BP 124/56
[2018-02-20 06:47] LABS: HEMATOCRIT 27.7 % (36.0-46.0); HEMOGLOBIN 8.7 G/DL (11.9-15.5); MCHC 31.4 G/DL (30.0-36.0); MCV 89.1 FL (83-99); PLATELET COUNT 357 K/uL (156-360); RBC DIS.WIDTH-SD 54.5 % (39-53); RED BLOOD COUNT 3.11 M/uL (3.80-5.20); WHITE BLOOD COUNT 16.8 K/uL (4.1-10.2)
[2018-02-20 07:14] LABS: CHLORIDE 106 MEQ/L (99-109); CREATININE 1.3 MG/DL (0.6-1.3); GFR ESTIMATE (CALCULATED) 46 mL/min/; GLUCOSE 168 mg/dL (70-99); POTASSIUM 4.2 MEQ/L (3.7-5.4); SODIUM 142 MEQ/L (136-147); UREA NITROGEN (BUN) 19 mg/dL (9-23)
[2018-02-20 08:48] VITALS: BP 159/67
[2018-02-20 11:44] VITALS: BP 120/65
[2018-02-20 15:44] VITALS: BP 167/71
[2018-02-20 21:00] VITALS: BP 144/63
[2018-02-21] VITALS (7 sets, daily range): BP systolic 130–189; BP diastolic 60–84
[2018-02-21 05:27] LABS: HEMATOCRIT 30.1 % (36.0-46.0); HEMOGLOBIN 9.7 G/DL (11.9-15.5); MCH 28.9 PG (29.0-34.0); MCHC 32.2 G/DL (30.0-36.0); MCV 89.6 FL (83-99); NRBC (%) 0.2 /100 WBC (0-0); RBC DIS.WIDTH-SD 55.1 % (39-53); RED BLOOD COUNT 3.36 M/uL (3.80-5.20); WHITE BLOOD COUNT 13.7 K/uL (4.1-10.2)
[2018-02-21 05:32] LABS: CHLORIDE 103 MEQ/L (99-109); CREATININE 1.2 MG/DL (0.6-1.3); GFR ESTIMATE (CALCULATED) 50 mL/min/; GLUCOSE 206 mg/dL (70-99); POTASSIUM 4.7 MEQ/L (3.7-5.4); SODIUM 140 MEQ/L (136-147); UREA NITROGEN (BUN) 21 mg/dL (9-23)
[2018-02-21 05:56] LABS: PLAT.SUFFICIENCY ADEQUATE
[2018-02-21 06:37] LABS: PLATELET COUNT 194 K/uL (156-360)
[2018-02-22] VITALS (7 sets, daily range): BP systolic 108–153; BP diastolic 56–67
[2018-02-22 05:46] LABS: HEMATOCRIT 27.7 % (36.0-46.0); HEMOGLOBIN 8.8 G/DL (11.9-15.5); MCH 27.9 PG (29.0-34.0); MCHC 31.8 G/DL (30.0-36.0); MCV 87.9 FL (83-99); RBC DIS.WIDTH-CV 16.8 % (11.8-14.6); RBC DIS.WIDTH-SD 53.2 % (39-53); RED BLOOD COUNT 3.15 M/uL (3.80-5.20); WHITE BLOOD COUNT 13.5 K/uL (4.1-10.2)
[2018-02-22 05:48] LABS: PLATELET COUNT 368 K/uL (156-360)
[2018-02-22 06:10] LABS: ALBUMIN 2.4 G/DL (3.2-4.8); ALKALINE PHOSPHATASE 124 IU/L (3-129); ALT (GPT) 11 IU/L (3-49); AST (GOT) 19 IU/L (2-34); CHLORIDE 102 MEQ/L (99-109); CREATININE 1.2 MG/DL (0.6-1.3); GFR ESTIMATE (CALCULATED) 50 mL/min/; GLUCOSE 244 mg/dL (70-99); MAGNESIUM 2.2 mg/dl (1.3-2.7); POTASSIUM 4.7 MEQ/L (3.7-5.4); SODIUM 140 MEQ/L (136-147); TOTAL BILIRUBIN 0.5 MG/DL (0.0-1.0); UREA NITROGEN (BUN) 18 mg/dL (9-23)
[2018-02-22 06:14] LABS: CHLORIDE 102 MEQ/L (99-109); CREATININE 1.1 MG/DL (0.6-1.3); GFR ESTIMATE (CALCULATED) 55 mL/min/; GLUCOSE 252 mg/dL (70-99); POTASSIUM 4.6 MEQ/L (3.7-5.4); SODIUM 140 MEQ/L (136-147); UREA NITROGEN (BUN) 17 mg/dL (9-23)
[2018-02-23 04:52] VITALS: BP 122/60
[2018-02-23 06:15] LABS: HEMATOCRIT 29.7 % (36.0-46.0); HEMOGLOBIN 9.3 G/DL (11.9-15.5); MCH 27.8 PG (29.0-34.0); MCHC 31.3 G/DL (30.0-36.0); MCV 88.7 FL (83-99); PLATELET COUNT 375 K/uL (156-360); RBC DIS.WIDTH-CV 16.5 % (11.8-14.6); RBC DIS.WIDTH-SD 53.1 % (39-53); RED BLOOD COUNT 3.35 M/uL (3.80-5.20); WHITE BLOOD COUNT 12.7 K/uL (4.1-10.2)
[2018-02-23 06:37] LABS: CHLORIDE 101 MEQ/L (99-109); CREATININE 1.2 MG/DL (0.6-1.3); GFR ESTIMATE (CALCULATED) 50 mL/min/; GLUCOSE 279 mg/dL (70-99); POTASSIUM 4.6 MEQ/L (3.7-5.4); SODIUM 138 MEQ/L (136-147); UREA NITROGEN (BUN) 18 mg/dL (9-23)
[2018-02-23 12:26] VITALS: BP 124/58
[2018-02-23 16:38] VITALS: BP 110/50
[2018-02-23 19:59] VITALS: BP 147/66
[2018-02-24 00:03] VITALS: BP 166/74
[2018-02-24 04:53] VITALS: BP 147/64
[2018-02-24 07:30] LABS: HEMATOCRIT 29.8 % (36.0-46.0); HEMOGLOBIN 9.1 G/DL (11.9-15.5); MCH 27.5 PG (29.0-34.0); MCHC 30.5 G/DL (30.0-36.0); PLATELET COUNT 412 K/uL (156-360); RBC DIS.WIDTH-CV 16.6 % (11.8-14.6); RBC DIS.WIDTH-SD 54.2 % (39-53); RED BLOOD COUNT 3.31 M/uL (3.80-5.20); WHITE BLOOD COUNT 12.6 K/uL (4.1-10.2)
[2018-02-24 07:52] LABS: CHLORIDE 98 MEQ/L (99-109); CREATININE 1.2 MG/DL (0.6-1.3); GFR ESTIMATE (CALCULATED) 50 mL/min/; GLUCOSE 233 mg/dL (70-99); POTASSIUM 5.1 MEQ/L (3.7-5.4); SODIUM 137 MEQ/L (136-147); UREA NITROGEN (BUN) 17 mg/dL (9-23)
[2018-02-24 08:35] VITALS: BP 112/64
[2018-02-24 12:29] VITALS: BP 130/64
[2018-02-24 15:47] VITALS: BP 138/63
[2018-02-24 19:37] VITALS: BP 118/64
[2018-02-25 01:07] VITALS: BP 120/60
[2018-02-25 03:17] VITALS: BP 120/65
[2018-02-25 08:10] VITALS: BP 132/64
[2018-02-25 11:58] VITALS: BP 121/61
[2018-02-25 15:41] VITALS: BP 111/68
[2018-02-25 15:55] LABS: C DIFF TOXIN POSITIVE (NEGATIVE)
[2018-02-25] MEDS ORDERED: VANCOCIN HCL125 MG PO (16:15)
[2018-02-25 20:19] VITALS: BP 122/68
== END 2018-02-25 21:23 | DRG 854 ==
LOC: EME 14:49 → CANRESERV 02-04 16:04 → ENRESERV 02-04 16:04 → 3EAST 02-04 16:15 → 4EAST 02-04 16:15 → 3EAST 02-09 23:39 → ENRESERV 02-09 23:41 → 4WEST 02-10 00:47 → ENRESERV 02-11 13:44 → 4EAST 02-11 15:33 → ENRESERV 02-22 11:47 → 3EAST 02-22 14:29
PROVIDERS: Emergency Medicine; Family Medicine; Hospitalist; Internal Medicine; Internal Medicine Nephrology; Physician Assistant; Specialist; Surgery; Thoracic Surgery (Cardiothoracic Vascular Surgery)
DX: A41.9 Sepsis, unspecified organism (principal); N39.0 Urinary tract infection, site not specified; K81.0 Acute cholecystitis; B96.29 Other Escherichia coli [E. coli] as the cause of diseases classified elsewhere; Z16.12 Extended spectrum beta lactamase (ESBL) resistance; E11.628 Type 2 diabetes mellitus with other skin complications; L03.116 Cellulitis of left lower limb; L02.612 Cutaneous abscess of left foot; E11.621 Type 2 diabetes mellitus with foot ulcer; L97.529 Non-pressure chronic ulcer of other part of left foot with unspecified severity; N17.9 Acute kidney failure, unspecified; L89.153 Pressure ulcer of sacral region, stage 3; E11.51 Type 2 diabetes mellitus with diabetic peripheral angiopathy without gangrene; E11.649 Type 2 diabetes mellitus with hypoglycemia without coma; E11.40 Type 2 diabetes mellitus with diabetic neuropathy, unspecified; E11.319 Type 2 diabetes mellitus with unspecified diabetic retinopathy without macular edema; E11.21 Type 2 diabetes mellitus with diabetic nephropathy; K91.89 Other postprocedural complications and disorders of digestive system; Y83.6 Removal of other organ (partial) (total) as the cause of abnormal reaction of the patient, or of later complication, without mention of misadventure at the time of the procedure; I11.0 Hypertensive heart disease with heart failure; I50.9 Heart failure, unspecified; E86.9 Volume depletion, unspecified; E87.0 Hyperosmolality and hypernatremia; D62 Acute posthemorrhagic anemia; E11.65 Type 2 diabetes mellitus with hyperglycemia; I95.9 Hypotension, unspecified; S02.5XXA Fracture of tooth (traumatic), initial encounter for closed fracture; Y83.8 Other surgical procedures as the cause of abnormal reaction of the patient, or of later complication, without mention of misadventure at the time of the procedure; K02.9 Dental caries, unspecified; R19.7 Diarrhea, unspecified; R41.0 Disorientation, unspecified; E78.5 Hyperlipidemia, unspecified; K21.9 Gastro-esophageal reflux disease without esophagitis; K59.00 Constipation, unspecified; E66.01 Morbid (severe) obesity due to excess calories; Z68.43 Body mass index [BMI] 50.0-59.9, adult; H40.9 Unspecified glaucoma; F12.90 Cannabis use, unspecified, uncomplicated; Z79.02 Long term (current) use of antithrombotics/antiplatelets; Z79.4 Long term (current) use of insulin; Z87.442 Personal history of urinary calculi; Z87.891 Personal history of nicotine dependence; Z89.412 Acquired absence of left great toe; Z95.820 Peripheral vascular angioplasty status with implants and grafts; Z88.0 Allergy status to penicillin
CPT/HCPCS: 36600; 70450; 71045; 71046; 71260; 73630; 73701; 74177; 74300; 74328; 80048; 80048 91; 80053; 80076; 80202; 81003; 82140; 82565; 82948; 83605; 83735; 83880; 83930; 83935; 84100; 84133; 84300; 84484; 85025; 85027; 85610; 85730; 86140; 87040; 87070; 87075; 87076; 87077; 87081; 87086; 87186; 87205; 87493; 87641; 87801; 88304; 93971; 94002; 94799; 97530 GO; 97530 GP; 99281; 99284; A6214; A6260; C1769; J0330; J0360; J0696; J1170; J1335; J1650; J1815; J2250; J2405; J2704; J2710; J3010; J3370; J7030; J7050; J7070; J7120; J7643; S0020; S0028; S0030